=== PATIENT | male | born 1985 | race Caucasian/White ===

== ENCOUNTER 2016-08-15 05:30 | Emergency (ER) | payer OTHER ==
[2016-08-15 05:38] VITALS: TEMP 98.2
[2016-08-15 05:47] VITALS: RESP 18
[2016-08-15] MEDS ORDERED: LORazepam 2 MG/ML SYRINGE IM STA (05:51)
--- NOTE | 2016-08-15 05:53 | ED ---
General Adult HPI - General Chief complaint: Anxiety Stated complaint: fatigued, feels off Time Seen by Provider: 08/15/16 05:40 Source: patient, family, RN notes reviewed Mode of arrival: ambulatory Limitations: no limitations - History of Present Illness Initial comments: This is a 30-year-old male with a past medical history significant for PTSD and anxiety. Patient states his been ongoing for 7 years. Patient states she cannot keep having these panic attacks try to live normal lites. Patient states she is disabled and cannot work because of his anxiety. Patient states tonight he woke up and couldn't get the thought out of his mind that he was given a diet he states he never wants to . Patient denies any drug use or alcohol use. Patient denies any actual physical complaints today. Patient denies any headache patient denies numbness weakness. Patient denies lightheadedness dizziness or near syncopal episode. Patient denies chest pain palpitations difficulty breathing shortness of breath per patient denies any recent fever chills or cough per patient denies abdominal pain patient denies nausea vomiting or diarrhea. - Related Data Home Medications Medication Instructions Recorded Confirmed No Known Home Medications [No 08/07/16 08/15/16 Known Home Medications] Allergies Allergy/AdvReac Type Severity Reaction Status Date / Time No Known Allergies Allergy Verified 08/15/16 05:38 Review of Systems ROS Statement: Those systems with pertinent positive or pertinent negative responses have been documented in the HPI. ROS Other: All systems not noted in ROS Statement are negative. Past Medical History Past Medical History: GERD/Reflux Additional Past Medical History / Comment(s): had abdominal pain and blood in stools,currently being tested for sleep apnea History of Any Multi-Drug Resistant Organisms: None Reported Past Surgical History: No Surgical Hx Reported Additional Past Anesthesia/Blood Transfusion Reaction / Comment(s): no hx anesthesia or blood transfusion Past Psychological History: Anxiety, PTSD Smoking Status: Never smoker Past Alcohol Use History: Rare Past Drug Use History: None Reported - Past Family History Mother Additional Family Medical History / Comment(s): back problems Father Family Medical History: Coronary Artery Disease (CAD) Additional Family Medical History / Comment(s): heart stent General Exam - General Exam Comments Initial Comments: GENERAL: Patient is well-developed and well-nourished. Patient is nontoxic and well- hydrated and is in no acute distress. ENT: Neck is soft and supple. No significant lymphadenopathy is noted. Oropharynx is clear. Moist mucous membranes. Neck has full range of motion without eliciting any pain. EYES: The sclera were anicteric and conjunctiva were pink and moist. Extraocular movements were intact and pupils were equal round and reactive to light. Eyelids were unremarkable. PULMONARY: Unlabored respirations. Good breath sounds bilaterally. No audible rales rhonchi or wheezing was noted. CARDIOVASCULAR: There is a regular rate and rhythm without any murmurs gallops or rubs. ABDOMEN: Soft and nontender with normal bowel sounds. No palpable organomegaly was noted. There is no palpable pulsatile mass. SKIN: Skin is clear with no lesions or rashes and otherwise unremarkable. NEUROLOGIC: Patient is alert and oriented x3. Cranial nerves II through XII are grossly intact. Motor and sensory are also intact. Normal speech, volume and content. Symmetrical smile. MUSCULOSKELETAL: Normal extremities with adequate strength and full range of motion. No lower extremity swelling or edema. No calf tenderness. LYMPHATICS: No significant lymphadenopathy is noted PSYCHIATRIC: Normal psychiatric evaluation. Moderate anxiety Limitations: no limitations Course Vital Signs 08/15/16 08/15/16 05:33 05:43 Temperature 98.2 F Pulse Rate 84 84 Respiratory 20 18 Rate Blood Pressure 137/100 130/90 O2 Sat by Pulse 99 98 Oximetry Medical Decision Making - Medical Decision Making Patient got 2 of Ativan the emergency room and was feeling considerably better. Disposition Clinical Impression: Acute anxiety Disposition: HOME SELF-CARE Condition: Good Instructions: Generalized Anxiety Disorder (ED), Panic Attack (ED) Referrals: None,Stated [Primary Care Provider] - 1-2 days Time of Disposition: 06:11
[2016-08-15 06:51] VITALS: BP 122/72; PULSE 72
== END 2016-08-15 06:50 | disposition home or self-care (01) ==
LOC: EC 05:30
DX: F41.9 Anxiety disorder, unspecified (principal); F43.10 Post-traumatic stress disorder, unspecified
CPT/HCPCS: 96372; 99283; J2060

== ENCOUNTER 2017-02-20 18:16 | Emergency (ER) | payer OTHER ==
--- NOTE | 2017-02-20 19:09 | ED ---
General Adult HPI - General Chief complaint: Chest Pain Stated complaint: chest pressure Time Seen by Provider: 02/20/17 18:41 Source: patient, RN notes reviewed Mode of arrival: ambulatory Limitations: no limitations - History of Present Illness Initial comments: This a 31-year-old male presents emergency Department with multiple complaints. Patient states she's been having ongoing issues over the last year. Patient states he starts having a large amount of chest pressure feels that he has some palpitations and some shortness of breath. States does get worse with deep inspiration one is present. Patient states his symptoms seem to wax and wane. Patient states he has seen multiple physicians for this and has been told that nothing is wrong that is most likely just psychological. Patient states he's been tried on psychiatric medication but they'll cause him to be drowsy. Patient does see a therapist. Patient states that [facility] and the . Patient states that he has no abdominal pain at this time. He states he does have intermittent nausea. Denies any focal weakness. But states that they're certain days that her symptoms are so bad that he feels that he cannot get out of bed because he feels that he cannot function. Patient denies any blurred vision this time states he does get intermittent blurred vision and frequent headaches and he states that he has not had headaches up until this last year. Patient does not take any current medications. Patient states he has a history of GERD was taking omeprazole currently states he is symptom-free. Patient denies any recent fever or chills. - Related Data Home Medications Medication Instructions Recorded Confirmed Melatonin 3 mg PO HS PRN 02/20/17 02/20/17 Allergies Allergy/AdvReac Type Severity Reaction Status Date / Time No Known Allergies Allergy Verified 02/20/17 18:47 Review of Systems ROS Statement: Those systems with pertinent positive or pertinent negative responses have been documented in the HPI. ROS Other: All systems not noted in ROS Statement are negative. Past Medical History Past Medical History: GERD/Reflux Additional Past Medical History / Comment(s): had abdominal pain and blood in stools History of Any Multi-Drug Resistant Organisms: None Reported Past Surgical History: No Surgical Hx Reported Additional Past Anesthesia/Blood Transfusion Reaction / Comment(s): no hx anesthesia or blood transfusion Past Psychological History: Anxiety, Depression, PTSD Smoking Status: Never smoker Past Alcohol Use History: Rare Past Drug Use History: None Reported - Past Family History Mother Additional Family Medical History / Comment(s): back problems Father Family Medical History: Coronary Artery Disease (CAD) Additional Family Medical History / Comment(s): heart stent General Exam Limitations: no limitations General appearance: alert, in no apparent distress Head exam: Present: atraumatic, normocephalic, normal inspection Eye exam: Present: normal appearance, PERRL, EOMI. Absent: scleral icterus, conjunctival injection, periorbital swelling ENT exam: Present: normal exam, normal oropharynx, mucous membranes moist, TM's normal bilaterally, normal external ear exam Neck exam: Present: normal inspection, full ROM. Absent: tenderness, meningismus, lymphadenopathy Respiratory exam: Present: normal lung sounds bilaterally. Absent: respiratory distress, wheezes, rales, rhonchi, stridor Cardiovascular Exam: Present: regular rate, normal rhythm, normal heart sounds. Absent: systolic murmur, diastolic murmur, rubs, gallop, clicks GI/Abdominal exam: Present: soft, normal bowel sounds. Absent: distended, tenderness, guarding, rebound, rigid Neurological exam: Present: alert, oriented X3, CN II-XII intact, reflexes normal. Absent: motor sensory deficit Skin exam: Present: warm, dry, intact, normal color. 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 IN interval 144 QRS duration 114 QT/QTC 380/428 Medical Decision Making - Medical Decision Making 31-year-old male presents emergency department for intermittent palpitations, not feeling well shortness breath headaches dizziness patient symptoms are most likely related to anxiety the patient does not believe that his symptoms are related to anxiety. Patient's lab work, computed tomography scan EKG chest x- ray within normal to her. Patiently advise follow up PCP and will be given flotation tender helper follow for any further workup. - Lab Data Result diagrams: 02/20/17 19:28 02/20/17 19:28 Lab Results 02/20/17 02/20/17 02/20/17 Range/Units 19:28 19:28 19:28 WBC 8.7 (3.8-10.6) k/uL RBC 5.28 (4.30-5.90) m/uL Hgb 16.4 (13.0-17.5) gm/dL Hct 45.5 (39.0-53.0) % MCV 86.1 (80.0-100.0) fL MCH 31.0 (25.0-35.0) pg MCHC 36.0 (31.0-37.0) g/dL RDW 13.3 (11.5-15.5) % Plt Count 228 (150-450) k/uL Neutrophils % 56 % Lymphocytes % 35 % Monocytes % 7 % Eosinophils % 1 % Basophils % 1 % Neutrophils # 4.8 (1.3-7.7) k/uL Lymphocytes # 3.0 (1.0-4.8) k/uL Monocytes # 0.6 (0-1.0) k/uL Eosinophils # 0.1 (0-0.7) k/uL Basophils # 0.1 (0-0.2) k/uL PT (9.0-12.0) sec INR (<1.2) APTT (22.0-30.0) sec D-Dimer (<0.60) mg/L FEU Sodium 142 (137-145) mmol/L Potassium 3.9 (3.5-5.1) mmol/L Chloride 103 (98-107) mmol/L Carbon Dioxide 27 (22-30) mmol/L Anion Gap 12 mmol/L BUN 13 (9-20) mg/dL Creatinine 1.15 (0.66-1.25) mg/dL Est GFR (MDRD) Af Amer >60 (>60 ml/min/1.73 sqM) Est GFR (MDRD) Non-Af >60 (>60 ml/min/1.73 sqM) Glucose 87 (74-99) mg/dL Calcium 9.6 (8.4-10.2) mg/dL Magnesium 2.1 (1.6-2.3) mg/dL Total Bilirubin 0.6 (0.2-1.3) mg/dL AST 32 (17-59) U/L ALT 51 (21-72) U/L Alkaline Phosphatase 58 (38-126) U/L Total Creatine Kinase 183 H (55-170) U/L CK-MB (CK-2) 0.9 (0.0-2.4) ng/mL CK-MB (CK-2) Rel Index 0.5 Troponin I <0.012 (0.000-0.034) ng/mL Total Protein 7.4 (6.3-8.2) g/dL Albumin 4.6 (3.5-5.0) g/dL Lipase 82 (23-300) U/L 02/20/17 Range/Units 19:28 WBC (3.8-10.6) k/uL RBC (4.30-5.90) m/uL Hgb (13.0-17.5) gm/dL Hct (39.0-53.0) % MCV (80.0-100.0) fL MCH (25.0-35.0) pg MCHC (31.0-37.0) g/dL RDW (11.5-15.5) % Plt Count (150-450) k/uL Neutrophils % % Lymphocytes % % Monocytes % % Eosinophils % % Basophils % % Neutrophils # (1.3-7.7) k/uL Lymphocytes # (1.0-4.8) k/uL Monocytes # (0-1.0) k/uL Eosinophils # (0-0.7) k/uL Basophils # (0-0.2) k/uL PT 10.8 (9.0-12.0) sec INR 1.1 (<1.2) APTT 24.2 (22.0-30.0) sec D-Dimer <0.17 (<0.60) mg/L FEU Sodium (137-145) mmol/L Potassium (3.5-5.1) mmol/L Chloride (98-107) mmol/L Carbon Dioxide (22-30) mmol/L Anion Gap mmol/L BUN (9-20) mg/dL Creatinine (0.66-1.25) mg/dL Est GFR (MDRD) Af Amer (>60 ml/min/1.73 sqM) Est GFR (MDRD) Non-Af (>60 ml/min/1.73 sqM) Glucose (74-99) mg/dL Calcium (8.4-10.2) mg/dL Magnesium (1.6-2.3) mg/dL Total Bilirubin (0.2-1.3) mg/dL AST (17-59) U/L ALT (21-72) U/L Alkaline Phosphatase (38-126) U/L Total Creatine Kinase (55-170) U/L CK-MB (CK-2) (0.0-2.4) ng/mL CK-MB (CK-2) Rel Index Troponin I (0.000-0.034) ng/mL Total Protein (6.3-8.2) g/dL Albumin (3.5-5.0) g/dL Lipase (23-300) U/L Disposition Clinical Impression: Palpitations, Lightheadedness Disposition: HOME SELF-CARE Condition: Stable Instructions: Palpitations (ED) Additional Instructions: Please return to the Emergency Department if symptoms worsen or any other concerns. Referrals: None,Stated [Primary Care Provider] - 1-2 days Jackie Serrano MD [STAFF PHYSICIAN] - 1-2 days Time of Disposition: 20:47
[2017-02-20 19:33] LABS: Basophils # (A) 0.1 k/uL (0-0.2); Basophils % (A) 1 %; CHCM 36.1; Eosinophils # (A) 0.1 k/uL (0-0.7); Eosinophils % (A) 1 %; HCT 45.5 % (39.0-53.0); HDW 2.69; HGB 16.4 gm/dL (13.0-17.5); Luc # (Auto) 0.13; Luc % (Auto) 2; Lymphocytes % (A) 35 %; MCV 86.1 fL (80.0-100.0); Mean Platelet Volume 7.3; Monocytes # (A) 0.6 k/uL (0-1.0); Monocytes % (A) 7 %; Neutrophils # (A) 4.8 k/uL (1.3-7.7); Neutrophils % (A) 56 %; RBC 5.28 m/uL (4.30-5.90); RDW 13.3 % (11.5-15.5); WBC 8.7 k/uL (3.8-10.6); WBC (Perox) 8.17
--- NOTE | 2017-02-20 19:44 | XR ---
EXAMINATION TYPE: XR chest 2V DATE OF EXAM: 02/20/2017 COMPARISON: Chest x-ray October 18, 2015 HISTORY: Chest pain/pressure. TECHNIQUE: Frontal and lateral views of the chest are obtained. FINDINGS: Low lung volumes are redemonstrated. There is no focal air space opacity, pleural effusion , or pneumothorax seen. The cardiac silhouette size is within normal limits. The osseous structure s are intact. IMPRESSION: Low lung volumes without suspicious acute pulmonary process. No significant change from prior.
[2017-02-20 19:47] LABS: INR 1.1 (<1.2); Partial Thromboplastin Time 24.2 sec (22.0-30.0); Prothrombin Time 10.8 sec (9.0-12.0)
[2017-02-20 19:54] LABS: ALT 51 U/L (21-72); AST 32 U/L (17-59); Alkaline Phosphatase 58 U/L (38-126); Anion Gap 12 mmol/L; Blood Urea Nitrogen 13 mg/dL (9-20); Calcium 9.6 mg/dL (8.4-10.2); Carbon Dioxide 27 mmol/L (22-30); Chloride 103 mmol/L (98-107); Glucose 87 mg/dL (74-99); Magnesium 2.1 mg/dL (1.6-2.3); Non-African American GFR(MDRD) >60 (>60 ml/min/1.73 sqM); Potassium 3.9 mmol/L (3.5-5.1); Sodium 142 mmol/L (137-145); Total Bilirubin 0.6 mg/dL (0.2-1.3); Total Protein 7.4 g/dL (6.3-8.2)
[2017-02-20 20:05] LABS: Creatine Kinase 183 U/L (55-170)
--- NOTE | 2017-02-20 20:06 | CT ---
EXAMINATION TYPE: CT brain wo con DATE OF EXAM: 02/20/2017 COMPARISON: NONE HISTORY: Complains of fatigue and headaches CT DLP: 1017.9 mGycm. Automated Exposure Control for Dose Reduction was Utilized. TECHNIQUE: CT scan of the head is performed without contrast. FINDINGS: There is no acute intracranial hemorrhage, mass effect, or midline shift identified. The ventricles and sulci are within normal limits in size. Visualized portion of right maxillary sinus i s completely opacified otherwise paranasal sinuses are clear. Globes are intact bilaterally. IMPRESSION: No acute intracranial hemorrhage or midline shift is seen. Correlate for acute right max illary sinus disease.
[2017-02-20 20:08] VITALS: RESP 18
[2017-02-20 20:17] LABS: Creatine Kinase MB 0.9 ng/mL (0.0-2.4); Troponin I <0.012 ng/mL (0.000-0.034)
[2017-02-20 20:58] VITALS: BP 129/76; PULSE 79; TEMP 98.1
== END 2017-02-20 20:57 | disposition home or self-care (01) ==
LOC: EC 18:16
DX: R00.2 Palpitations (principal); R42 Dizziness and giddiness; R06.02 Shortness of breath; R07.89 Other chest pain; R51 Headache; K21.9 Gastro-esophageal reflux disease without esophagitis; Z79.899 Other long term (current) drug therapy; Z82.49 Family history of ischemic heart disease and other diseases of the circulatory system
CPT/HCPCS: 36415; 70450; 71020; 80053; 82550; 82553; 83690; 83735; 84484; 85025; 85379; 85610; 85730; 93005; 99285

== ENCOUNTER → 2017-07-28 | Outpatient (CLI) | payer OTHER ==
--- NOTE | 2017-07-28 15:57 | US ---
EXAMINATION TYPE: US thyroid st tissue head/neck DATE OF EXAM: 07/28/2017 COMPARISON: NONE CLINICAL HISTORY: R68.89 Other general symptoms and signs. Patient feels he has a lump in his throat. GLAND SIZE: Right Lobe: 4.3 x 1.4 x 1.9 cm Overall Parenchyma: homogenous Left Lobe: 5.5 x 1.6 x 1.9 cm Overall Parenchyma: homogeneous Isthmus Thickness: 0.2 cm NODULES RIGHT: # of nodules measured on right: 0 LEFT: # of nodules measured on left: 0 ISTHMUS: # of nodules measured in the isthmus: 0 Bilateral neck scanned, no evidence of lymphadenopathy. Thyroid gland is normal in size and homogeneous echotexture without evidence of suspicious solid or c ystic nodule. IMPRESSION: Unremarkable study.
== END | disposition home or self-care (01) ==
LOC: RADUSWWP 15:26
PROVIDERS: ATTEND Family Medicine
DX: R09.89 Other specified symptoms and signs involving the circulatory and respiratory systems (principal)
CPT/HCPCS: 76536

== ENCOUNTER 2018-01-18 18:06 | Emergency (ER) | payer OTHER ==
[2018-01-18 18:16] VITALS: BP 131/87; RESP 18; TEMP 99.3
[2018-01-18] MEDS ORDERED: LORazepam 1 MG TAB PO STA (18:26)
[2018-01-18 18:31] VITALS: PULSE 75
--- NOTE | 2018-01-18 18:37 | ED ---
General Adult HPI - General Chief complaint: Chest Pain Stated complaint: chest pain Time Seen by Provider: 01/18/18 18:10 Source: patient, RN notes reviewed Mode of arrival: ambulatory Limitations: no limitations - History of Present Illness Initial comments: This is a 32-year-old male who presents emergency department with past medical history significant for PTSD. Patient states she also has had multiple panic attacks. Patient states he thinks another panic attack today when he was in a restaurant he started having some chest tightness and some tingling to both of his hands feet and around his mouth and then he states his hands start to cramp up. Patient states this is typical of him having a panic attack. Patient states he had a Colles father brings him to the hospital. Patient states he was noted to about this because [facility]. Patient is on no medications currently patient denies any difficulty breathing or shortness of breath patient does state he was hyperventilating. Patient denies abdominal pain patient denies nausea vomiting diarrhea. Patient denies any recent fever chills or cough. - Related Data Home Medications Medication Instructions Recorded Confirmed Ergocalciferol (Vitamin D2) 50,000 unit PO FR 01/18/18 01/18/18 [Vitamin D2] Allergies Allergy/AdvReac Type Severity Reaction Status Date / Time No Known Allergies Allergy Verified 01/18/18 18:22 Review of Systems ROS Statement: Those systems with pertinent positive or pertinent negative responses have been documented in the HPI. ROS Other: All systems not noted in ROS Statement are negative. Past Medical History Past Medical History: GERD/Reflux Additional Past Medical History / Comment(s): had abdominal pain and blood in stools History of Any Multi-Drug Resistant Organisms: None Reported Past Surgical History: No Surgical Hx Reported Additional Past Anesthesia/Blood Transfusion Reaction / Comment(s): no hx anesthesia or blood transfusion Past Psychological History: Anxiety, Depression, PTSD Smoking Status: Never smoker Past Alcohol Use History: Rare Past Drug Use History: None Reported - Past Family History Mother Additional Family Medical History / Comment(s): back problems Father Family Medical History: Coronary Artery Disease (CAD) Additional Family Medical History / Comment(s): heart stent General Exam - General Exam Comments Initial Comments: GENERAL: Patient is well-developed and well-nourished. Patient is nontoxic and well- hydrated and is in no acute distress. ENT: Neck is soft and supple. No significant lymphadenopathy is noted. Oropharynx is clear. Moist mucous membranes. Neck has full range of motion without eliciting any pain. EYES: The sclera were anicteric and conjunctiva were pink and moist. Extraocular movements were intact and pupils were equal round and reactive to light. Eyelids were unremarkable. PULMONARY: Unlabored respirations. Good breath sounds bilaterally. No audible rales rhonchi or wheezing was noted. CARDIOVASCULAR: There is a regular rate and rhythm without any murmurs gallops or rubs. ABDOMEN: Soft and nontender with normal bowel sounds. No palpable organomegaly was noted. There is no palpable pulsatile mass. SKIN: Skin is clear with no lesions or rashes and otherwise unremarkable. NEUROLOGIC: Patient is alert and oriented x3. Cranial nerves II through XII are grossly intact. Motor and sensory are also intact. Normal speech, volume and content. Symmetrical smile. MUSCULOSKELETAL: Normal extremities with adequate strength and full range of motion. No lower extremity swelling or edema. No calf tenderness. 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 Patient's EKG shows no ST segment elevation or depression or T wave abnormalities are noted. Patient appears to have delta waves in V2 V3 V4 and V5 as well as to and aVF. I sent the EKG to Dr. Serrano and he was in agreement that they were suspicious for delta waves and wanted the patient to follow-up with his office. Disposition Clinical Impression: WPW (Yqkml-Rtlfowttt-Xbuep syndrome), Panic attack Disposition: HOME SELF-CARE Instructions: Bjuik-Bsqjfqyba-Lniyr Syndrome (ED) Is patient prescribed a controlled substance at d/c from ED?: No Referrals: Rochelle Estrada MD [Primary Care Provider] - 1-2 days Time of Disposition: 19:49
== END 2018-01-18 19:57 | disposition home or self-care (01) ==
LOC: EC 18:06
DX: I45.6 Pre-excitation syndrome (principal); F41.0 Panic disorder [episodic paroxysmal anxiety]; Z79.899 Other long term (current) drug therapy
CPT/HCPCS: 93005; 99284

== ENCOUNTER → 2021-04-22 | Outpatient (CLI) | payer OTHER ==
--- NOTE | 2021-04-22 17:55 | XR ---
EXAMINATION TYPE: XR knee complete LT DATE OF EXAM: 04/22/2021 COMPARISON: 06/09/2011 HISTORY: 35-year-old male M25.562 TECHNIQUE: 3 views FINDINGS: No acute fracture, subluxation, dislocation. No knee joint effusion. Extensor mechanism is intact. IMPRESSION: No acute osseous abnormality seen.
== END | disposition home or self-care (01) ==
LOC: RADXRMAIN 10:02
PROVIDERS: ATTEND Family Medicine
DX: M25.562 Pain in left knee (principal)

== ENCOUNTER 2021-10-29 09:21 | Day surgery (SDC) | payer OTHER ==
[2021-10-28 11:16] VITALS: BMI 31.8
[~2021-10-29 09:21] MED LIST: LACTATED RINGERS 1,000 ML IV SCH; LIDOCAINE 1% (10MG/ML) FOR IV START INTRADERMA PRN
[2021-10-29 09:40] VITALS: TEMP 97.2
[2021-10-29] MEDS ORDERED: LACTATED RINGERS 1,000 ML IV ONE (09:42)
[2021-10-29] MEDS ORDERED: PROPOFOL 10 MG/ML 20 ML VIAL IV ONE (10:10)
--- NOTE | 2021-10-29 10:22 | P.PCN ---
Date of Procedure: 10/29/21 Procedure(s) Performed: BRIEF HISTORY: Patient is a 36-year-old pleasant 1 male scheduled for an elective colonoscopy as a part of evaluation of intermittent rectal bleeding for the last 1 month duration. PROCEDURE PERFORMED: Colonoscopy with biopsy. PREOPERATIVE DIAGNOSIS: Intermittent rectal bleeding. IV sedation per Anesthesia. PROCEDURE: After informed consent was obtained, the patient, was brought into the endoscopy unit. IV sedation was administered by Anesthesia under continuous monitoring. Digital rectal examination was normal. Initially the Olympus CF-160 flexible video colonoscope was then inserted in the rectum, gradually advanced into the cecum without any difficulty. Careful examination was performed as the scope was gradually being withdrawn. Ileocecal valve and the appendiceal orifice were visualized and appeared normal. Prep was excellent. Mucosa of the cecum, ascending colon, transverse colon, descending colon, sigmoid colon, and rectum appeared normal. In the proximal rectum there was a 3 mm sessile polyp removed by cold biopsy. Retroflexion was performed in the rectum and small internal hemorrhoids were seen. The patient tolerated the procedure well. IMPRESSION: 3 mm proximal rectal polyp status post cold biopsy Small internal hemorrhoids RECOMMENDATIONS: Findings of this examination were discussed with the patient well as his family. He was advised to follow with the biopsy results. If the biopsy results adenoma he can have a repeat colonoscopy in 5 years. In the meantime he was advised to be a high-fiber diet,.
[2021-10-29 10:44] VITALS: BP 114/80; PULSE 64; RESP 16
== END 2021-10-29 10:59 | disposition home or self-care (01) ==
LOC: ORWHC2ENDO 09:21
PROVIDERS: ATTEND Internal Medicine Gastroenterology
DX: K62.1 Rectal polyp (principal); K64.8 Other hemorrhoids
CPT/HCPCS: 88305; 45380; J2704

== ENCOUNTER → 2023-03-12 | Outpatient (CLI) | payer OTHER ==
--- NOTE | 2023-03-12 13:21 | CT ---
EXAMINATION TYPE: CT brain wo con CT DLP: 1064.30 mGycm, Automated exposure control for dose reduction was used. DATE OF EXAM: 03/12/2023 1:02 PM COMPARISON: Prior CT Brain from 02/20/2017 . CLINICAL INDICATION:Male, 37 years old with history of R53.82, Chronic fatigue, unspecified TECHNIQUE: Brain: Multiple axial CT images of the brain were obtained without IV contrast. Coronal and sagittal reformats reviewed. FINDINGS: Brain: Extra-axial spaces: No abnormal extra-axial fluid collections. Ventricular system: Within normal limits Cerebral parenchyma: No acute intraparenchymal hemorrhage or mass effect. The sharif-white junction is well differentiated. Cerebellum: Unremarkable. Mass effect: No evidence of midline shift. Intracranial vasculature: unremarkable Soft tissues: Normal. Calvarium/osseous structures: No depressed skull fracture. Paranasal sinuses and mastoid air cells: The mastoid air cells are clear. Bilateral chest at mucosal retention cysts within the maxillary sinuses with the largest in the left measuring 1.8 cm the larges t on the right measuring 3.1 cm. Visualized orbits: Orbital contents are intact. IMPRESSION: No acute intracranial process.
== END | disposition home or self-care (01) ==
LOC: RADCTMAIN 11:47
DX: R53.82 Chronic fatigue, unspecified (principal); R41.3 Other amnesia
CPT/HCPCS: 70450

== ENCOUNTER → 2023-06-14 | Outpatient (CLI) | payer OTHER ==
--- NOTE | 2023-06-15 23:37 | SLS ---
SLEEP STUDY STUDY PERFORMED: This is a home sleep study. HISTORY OF PRESENT ILLNESS: This is a 37-year-old male patient who was referred to me for evaluation of sleep apnea. The patient reported a chronic loud snoring, no witnessed apneas. He is a and he has previous history of PTSD. He has undergone various treatments for PTSD including counseling. He is currently off treatment. The patient is going to bed around 3 a.m., waking up at 11 a.m. in the morning. He is feeling tired and non refreshed during the day. He has chronic generalized anxiety. He has a Mallampati class IV. Overall clinical suspicion for sleep apnea was low. PERTINENT PHYSICAL FINDINGS: Height is 6 feet, weight is 211, BMI 28.6. TECHNICAL DESCRIPTION: The [facility] system was used to complete a home sleep study. This is a type 3 home sleep study. Total recording duration was 7 hours and 34 minutes. The study started at 00:01 a.m. and ended at 7:35 am. This was an adequate study as the patient had a total of 7 hours and 22 minutes of flow evaluation and 7 hours and 23 minutes of oxygen saturation evaluation. RESULTS: Respiratory count showed a total of 2 obstructive apneas and 15 obstructive hypopneas. The resulting apnea-hypopnea index was 2.3. OXYGENATION ANALYSIS: No oxygen desaturation encountered. CARDIAC SUMMARY: Average heart rate was 52, minimum heart rate was 44, maximum heart rate was 202. ASSESSMENT: 1. Primary snoring, no evidence of any sleep breathing disorder. 2. History of advanced sleep phase syndrome. 3. History of post traumatic stress disorder. 4. Generalized anxiety disorder. PLAN: This is a negative study for sleep apnea. Overall clinical suspicion was low. The patient has an AHI of 2.3. This warrants no further treatment. Work on improving sleep hygiene. Work on gradually moving his sleep hours to regular hours between 11 p.m. and 6 a.m. in the morning. Refer this patient back to the primary care. No need for CPAP therapy. MMODL / IJN: [id number] /
== END ==
LOC: 3 N SLEEP 12:58
PROVIDERS: ATTEND Internal Medicine Critical Care Medicine
DX: R06.83 Snoring (principal); G47.21 Circadian rhythm sleep disorder, delayed sleep phase type; F43.10 Post-traumatic stress disorder, unspecified; F41.1 Generalized anxiety disorder

== ENCOUNTER 2024-08-01 11:16 | Day surgery (SDC) | payer OTHER ==
[2024-08-01] MEDS ORDERED: LACTATED RINGERS 1,000 ML IV SCH (11:34)
[2024-08-01] MEDS: IV FLUID CONTINUATION 1,000 ML IV ONE (11:34)
[2024-08-01] MEDS ORDERED: LIDOCAINE 1% (10MG/ML) FOR IV START INTRADERMA PRN (11:34)
[2024-08-01 11:43] VITALS: RESP 16; TEMP 97
[2024-08-01] MEDS ORDERED: LIDOCAINE 1% INJ 10MG/ML (20 ML MDV) ONE (12:26)
[2024-08-01] MEDS ORDERED: PROPOFOL 10 MG/ML 20 ML VIAL IV ONE (12:26)
--- NOTE | 2024-08-01 12:33 | P.PCN ---
Date of Procedure: 08/01/24 Procedure(s) Performed: BRIEF HISTORY: Patient is a 38-year-old, pleasant, white male scheduled for an upper endoscopy as a part evaluation of globus sensation in his throat area. He also has longstanding history of GERD and intermittent dysphagia to solids.. PROCEDURE PERFORMED: Esophagogastroduodenoscopy with biopsy. PREOPERATIVE DIAGNOSIS: GERD and globus sensation in throat area/intermittent dysphagia to solids. IV sedation per anesthesia. PROCEDURE: After informed consent was obtained, the patient was brought into the endoscopy unit. IV sedation was administered by Anesthesia under continuous monitoring. Initially the Olympus GIF-140 video endoscope was inserted into the mouth. Esophagus intubated without any difficulty. It was gradually advanced into the stomach and duodenum and carefully examined. The bulb and the second part of the duodenum appeared normal. The scope at this time was withdrawn to the stomach, adequately insufflated with air, and upon careful examination, mucosa of the antrum, gastritis and biopsies were done for this area. Mucosa of the body, cardia and the fundus appeared normal. The scope was then withdrawn into the esophagus. The GE junction was located at 41 cm from the incisors. The esophagus appeared normal. There were no erosions or ulcerations seen, biopsies were done from the mid and distal esophagus rule out eosinophilic esophagitis and the patient tolerated the procedure well. IMPRESSION: 1. Normal-appearing esophagus with no evidence of esophagitis or esophageal stricture. 2. Mild antral gastritis. RECOMMENDATIONS: The findings of this examination were discussed with the patient as well as his family. He was advised to follow-up with the biopsy results. He will be seen in the office in 2 to 3 weeks..
[2024-08-01 12:50] VITALS: BP 113/72; PULSE 65
== END 2024-08-01 13:09 | disposition home or self-care (01) ==
LOC: ORWHC2ENDO 11:16
PROVIDERS: ATTEND Internal Medicine Gastroenterology
DX: K29.50 Unspecified chronic gastritis without bleeding (principal); K21.9 Gastro-esophageal reflux disease without esophagitis; Z98.890 Other specified postprocedural states
CPT/HCPCS: 88305; 43239; J2003; J2704

== ENCOUNTER 2024-12-08 13:31 | Emergency (ER) | payer OTHER ==
[2024-12-08 13:48] VITALS: RESP 18; TEMP 98.2
--- NOTE | 2024-12-08 15:06 | ED ---
URI HPI - General Chief Complaint: Upper Respiratory Infection Stated Complaint: headache, congestion Time Seen by Provider: 12/08/24 15:03 Source: patient, RN notes reviewed Mode of arrival: ambulatory Limitations: no limitations - History of Present Illness Initial Comments: 39-year-old male presenting for nasal congestion x 1 day with sore throat, fa tigue, otalgia, and headache. Patient reports he was diagnosed with pneumonia a couple of weeks ago from urgent care and completed all the medication. States symptoms improved after the medications, however started to feel fatigued yesterday. He is a non-smoker. No significant medical history. - Related Data Home Medications Medication Instructions Recorded Confirmed No Known Home Medications 07/28/24 08/01/24 Allergies Allergy/AdvReac Type Severity Reaction Status Date / Time No Known Allergies Allergy Verified 08/01/24 11:39 Review of Systems ROS Statement: Those systems with pertinent positive or pertinent negative responses have been documented in the HPI. ROS Other: All systems not noted in ROS Statement are negative. Past Medical History Past Medical History: Asthma, GERD/Reflux Additional Past Medical History / Comment(s): Asthma as child. Hx blood in stools History of Any Multi-Drug Resistant Organisms: None Reported Past Surgical History: No Surgical Hx Reported Additional Past Surgical History / Comment(s): EGD. PRK bilat Past Anesthesia/Blood Transfusion Reactions: No Reported Reaction Additional Past Anesthesia/Blood Transfusion Reaction / Comment(s): no blood transfusion Past Psychological History: Anxiety, Depression, PTSD Smoking Status: Never smoker Past Alcohol Use History: None Reported Past Drug Use History: None Reported - Past Family History Mother Family Medical History: Musculoskeletal Disorder Additional Family Medical History / Comment(s): back problems Father Family Medical History: Coronary Artery Disease (CAD) Additional Family Medical History / Comment(s): heart stent General Exam Limitations: no limitations General appearance: alert, in no apparent distress Head exam: Present: atraumatic, normocephalic, normal inspection Eye exam: Present: normal appearance, PERRL, EOMI. Absent: scleral icterus, conjunctival injection, periorbital swelling ENT exam: Present: normal exam, normal oropharynx, mucous membranes moist Respiratory exam: Present: normal lung sounds bilaterally. Absent: respiratory distress, wheezes, rales, rhonchi, stridor Cardiovascular Exam: Present: regular rate, normal rhythm, normal heart sounds. Absent: systolic murmur, diastolic murmur, rubs, gallop, clicks Neurological exam: Present: alert, oriented X3 Psychiatric exam: Present: normal affect, normal mood Skin exam: Present: warm, dry, intact, normal color. Absent: rash Course Vital Signs 12/08/24 12/08/24 13:46 16:36 Temperature 98.2 F 98.2 F Pulse Rate 71 80 Respiratory 18 18 Rate Blood Pressure 118/62 124/69 O2 Sat by Pulse 99 99 Oximetry Medical Decision Making - Medical Decision Making Was pt. sent in by a medical professional or institution (, HERLINDA, TELEVISION SCRIPT WRITER, urgent care, hospital, or alf...) When possible be specific @ -No Did you speak to anyone other than the patient for history (EMS, parent, family, police, friend...)? What history was obtained from this source @ -No Did you review nursing and triage notes (agree or disagree)? Why? @ -I reviewed and agree with nursing and triage notes Were old charts reviewed (outside hosp., previous admission, EMS record, old EKG, old radiological studies, urgent care reports/EKG's, alf records)? Report findings @ -No old charts were reviewed Differential Diagnosis (chest pain, altered mental status, abdominal pain women, abdominal pain men, vaginal bleeding, weakness, fever, dyspnea, syncope, headache, dizziness, GI bleed, back pain, seizure, CVA, palpatations, mental health, musculoskeletal)? @ -Viral URI, pneumonia, COVID-19, influenza, RSV EKG interpreted by me (3pts min.). @ -None X-rays interpreted by me (1pt min.). @ -Chest x-ray reveals no acute cardiopulmonary process CT interpreted by me (1pt min.). @ -None done U/S interpreted by me (1pt. min.). @ -None done What testing was considered but not performed or refused? (CT, X-rays, U/S, labs)? Why? @ -None What meds were considered but not given or refused? Why? @ -None Did you discuss the management of the patient with other professionals (prof sachis i.e. , HERLINDA, TELEVISION SCRIPT WRITER, lab, RT, psych nurse, social security assessor, gyroscope repairer, teacher, commissioned security officer, pillowcase cleaner)? Give summary @ -No Was smoking cessation discussed for >3mins.? @ -No Was critical care preformed (if so, how long)? @ -No Were there social determinants of health that impacted care today? How? (Homelessness, low income, unemployed, alcoholism, drug addiction, transportation, low edu. Level, literacy, decrease access to med. care, retirement, rehab)? @ -No Was there de-escalation of care discussed even if they declined (Discuss DNR or withdrawal of care, Hospice)? DNR status @ -No What co-morbidities impacted this encounter? (DM, HTN, Smoking, COPD, CAD, Cancer, CVA, ARF, Chemo, Hep., AIDS, mental health diagnosis, sleep apnea, morbid obesity)? @ -None Was patient admitted / discharged? Hospital course, mention meds given and route, prescriptions, significant lab abnormalities, going to OR and other pertinent info. @ -Discharge. 39-year-old male presenting for nasal congestion x 1 day with associated fatigue, sore throat, and headache. Patient is well-appearing, no acute distress. Vital signs within acceptable limits. Heart and lungs clear to auscultation bilaterally. Patient is negative for influenza, COVID-19, RSV, and strep. Chest x-ray reveals no acute cardiopulmonary process. Discussed negative results with patient. Discussed diagnosis of viral upper respiratory infection. Appropriate turn precautions and supportive care discussed. Case was discussed with my ED attending Dr. Bingham. Undiagnosed new problem with uncertain prognosis? @ -No Drug Therapy requiring intensive monitoring for toxicity (Heparin, Nitro, Insulin, Cardizem)? @ -No Were any procedures done? @ -No Diagnosis/symptom? @ -Viral upper respiratory infection Acute, or Chronic, or Acute on Chronic? @ -Acute Uncomplicated (without systemic symptoms) or Complicated (systemic symptoms)? @ -Uncomplicated Side effects of treatment? @ -No Exacerbation, Progression, or Severe Exacerbation? @ -No Poses a threat to life or bodily function? How? (Chest pain, [place], [place], pneumonia, PE, COPD, DKA, ARF, appy, cholecystitis, CVA, Diverticulitis, Homicidal, Suicidal, threat to staff... and all critical care pts) @ -No - Lab Data Lab Results 12/08/24 12/08/24 Range/Units 15:01 15:01 Influenza Type A (PCR) Not Detected (Not Detectd) Influenza Type B (PCR) Not Detected (Not Detectd) RSV (PCR) Not Detected (Not Detectd) SARS-CoV-2 (PCR) Not Detected (Not Detectd) Group A Strep (PCR) NOT DETECTED (Not Detectd) Disposition Clinical Impression: Viral upper respiratory infection Disposition: HOME SELF-CARE Condition: Stable Instructions (If sedation given, give patient instructions): Upper Respiratory Infection (ED) Additional Instructions: Please return to the Emergency Department if symptoms worsen or any other concerns. Is patient prescribed a controlled substance at d/c from ED?: No Referrals: None,Stated [Primary Care Provider] - 1-2 days Forms: Area PCPs Time of Disposition: 16:32
--- NOTE | 2024-12-08 15:16 | XR ---
EXAMINATION TYPE: XR chest 2V DATE OF EXAM: 12/08/2024 3:08 PM COMPARISON: 02/20/2017 CLINICAL INDICATION: Male, 39 years old with history of cough, , TECHNIQUE: PA and lateral views FINDINGS: The cardiomediastinal silhouette, aorta, and pulmonary vasculature are within normal limits. Lungs an d pleural spaces are clear. IMPRESSION: No acute cardiopulmonary process. [facility], , 12/08/2024 3:14 PM
[2024-12-08 15:44] LABS: Influenza A Not Detected (Not Detectd); Influenza B Not Detected (Not Detectd); RSV Not Detected (Not Detectd)
[2024-12-08 16:37] VITALS: BP 124/69; PULSE 80
== END 2024-12-08 16:37 | disposition home or self-care (01) ==
LOC: EC 13:31
DX: J06.9 Acute upper respiratory infection, unspecified (principal); B97.89 Other viral agents as the cause of diseases classified elsewhere
CPT/HCPCS: 71046; 87636; 87651; 99284